=== PATIENT | female | born 1955 | race African-American/Black ===

== ENCOUNTER → 2021-04-03 | Outpatient (CLI) | payer OTHER ==
[~2021-04-03] VITALS: Ht 167.6 cm; Wt 72.6 kg
[~2021-04-03] MED LIST: AMITRIPTYLINE H10 M1 PO; APAP650 PO; CIPROFLOXACIN500 M1 PO; CLARITIN10 MG PO; CYMBALTA60 MG PO; DEXILANT60 MG PO; FLAGYL500 MG PO; FLEXERIL; GLUCOPHAGE1000 MG PO; HYDROCODONE-AC120 ML PO; IBUPROFEN 400400 M2 PO; MEDROLDOSEPACK PO; NEXIUM 40 MG CA40 M1 PO; NORCO 5-325 TA1 EACH PO; VICODIN 5-5001 EACH PO; VITAMIN B IM; VITAMIN D PO
[2021-04-03 10:08] VITALS: BP 132/63
--- NOTE | 2021-04-03 10:26 | NUR ---
[facility] Assessment: 1. History of Osteoarthritis: ALL JOINTS History of Rheumatoid Arthritis: Not Applicable 2. Height: 5 ft. 6 in. 167.6 cm. Weight: 160.0 lb. oz. 72.576 kg. Patient's BMI: 25.8 3. Vital Signs: BP: 132/63 Pulse: 66 Resp: 14 Temp: 02 Sat: 100 ECG Mon: 4. Pain Intensity: 10 5. Fall Risk: Dizziness: N Needs help standing or walking: N Fallen in the last 3 months: N Fall risk comments: 6. Patient on Blood Thinner: None 7. History of Hypertension: N 8. Opioid Therapy greater than 6 weeks: Opiate Contract Signed: 9. Risk Assessment Tool Provided: LOW-3 10. Functional Assessment Tool: 40/ 11. Recreational Drug Use: Never Drug Type: Tobacco Use: Current Every Day Smoker Tobacco Type: Cigarettes Amount or Packs/day: 2 CIGS How Many Years: 10 Alcohol Use: Yes Frequency: Special Occasions Quant:
== END ==
LOC: PAIN 07:01
PROVIDERS: ATTEND Anesthesiology Pain Medicine
DX: M51.17 Intervertebral disc disorders with radiculopathy, lumbosacral region (principal); M19.90 Unspecified osteoarthritis, unspecified site; E78.5 Hyperlipidemia, unspecified; K21.9 Gastro-esophageal reflux disease without esophagitis; D71 Functional disorders of polymorphonuclear neutrophils; F17.290 Nicotine dependence, other tobacco product, uncomplicated; F32.9 Major depressive disorder, single episode, unspecified; Z95.0 Presence of cardiac pacemaker; Z72.89 Other problems related to lifestyle